=== PATIENT | female | born 1960 | race African-American/Black ===

== ENCOUNTER 2017-12-27 07:22 | Emergency (ER) | payer SELFPAY ==
[~2017-12-27] VITALS: Ht 167.6 cm; Wt 95.8 kg
[2017-12-27 07:28] VITALS: BP 245/120; PULSE 90; RESP 18; TEMP 98; O2SAT 98
[2017-12-27] MEDS ORDERED: cloNIDine HCL 0.2 MG TAB PO ONE (07:45)
[2017-12-27] MEDS ORDERED: HYDROmorphone HCL PF 2 MG/ML VIAL IV PUSH ONE (07:45)
[2017-12-27] MEDS ORDERED: ONDANSETRON HCL 4 MG/2 ML VIAL IV PUSH ONE (07:45)
--- NOTE | 2017-12-27 07:47 | PD ---
HPI Chief Complaint: Back/ Neck Pain or Injury Time Seen by Provider: 07:37 Travel History International Travel<30 days: No Contact w/Intl Traveler<30days: No Traveled to known affect area: No History of Present Illness HPI This 57-year-old female is complaining of back pain. She is having low back pain which is been going on for 2 weeks. Is aggravated by standing and moving. There is no numbness or tingling. She has had similar pain in the past. She has a history of hypertension and has been on 2 medications for blood pressure in the past. She moved here from [place] 10 months ago and has not taken any medicine since she moved. He has been taking some ibuprofen 800 mg for the pain without much response. She also has noticed some snapping in her right third finger PFSH Past Medical History Cardiovascular Problems: Yes (HTN) Hypertension: Yes Musculoskeletal: Yes (Back pain ) Tetanus Vaccination: > 5 Years Influenza Vaccination: No ?: Not Menopausal: Yes Social History Alcohol Use: No Tobacco Use: Yes (1/2 PPD) Substance Use: No Allergies-Medications (Allergen,Severity, Reaction): Coded Allergies: morphine (Verified Allergy, Intermediate, Nausea/Vomiting, 12/27/17) Reported Meds & Prescriptions Reported Meds & Active Scripts Active No Active Prescriptions or Reported Medications Review of Systems General / Constitutional: No: Fever, Chills Eyes: No: Diploplia, Blurred Vision HENT: No: Headaches Cardiovascular: No: Chest Pain or Discomfort, Palpitations Respiratory: No: Cough Gastrointestinal: No: Nausea, Vomiting Genitourinary: No: Urgency Skin: No Rash Neurologic: No: Weakness, Syncope Hematologic/Lymphatic: No: Easy Bruising Physical Exam Narrative GENERAL: Well-developed female SKIN: Focused skin assessment warm/dry. HEAD: Atraumatic. Normocephalic. EYES: Pupils equal and round. No scleral icterus. No injection or drainage. ENT: No nasal bleeding or discharge. Mucous membranes pink and moist. NECK: Trachea midline. No JVD. CARDIOVASCULAR: Regular rate and rhythm. No murmur appreciated. RESPIRATORY: No accessory muscle use. Clear to auscultation. Breath sounds equal bilaterally. GASTROINTESTINAL: Abdomen soft, non-tender, nondistended. Hepatic and splenic margins not palpable. MUSCULOSKELETAL: No obvious deformities. No clubbing. No cyanosis. No edema. There is some tenderness of the back in the midline NEUROLOGICAL: Awake and alert. No obvious cranial nerve deficits. Motor grossly within normal limits. Normal speech. Sensation and strength of the legs is equal PSYCHIATRIC: Appropriate mood and affect; insight and judgment normal. Data Data Last Documented VS Vital Signs Date Time Temp Pulse Resp B/P (MAP) Pulse Ox O2 Delivery O2 Flow Rate FiO2 12/27/17 08:30 83 16 150/85 (106) 94 Room Air 12/27/17 07:28 98.0 Orders Orders Complete Blood Count With Diff (12/27/17 07:42) Basic Metabolic Panel (Bmp) (12/27/17 07:42) Urinalysis - C+S If Indicated (12/27/17 07:42) Clonidine (Catapres) (12/27/17 07:45) Ondansetron Inj (Zofran Inj) (12/27/17 07:45) Hydromorphone Pf Inj (Dilaudid Pf Inj) (12/27/17 07:45) Urine Culture (12/27/17 08:00) Labs Laboratory Tests Test 12/27/17 07:50 12/27/17 08:00 White Blood Count 16.3 TH/MM3 Red Blood Count 4.89 MIL/MM3 Hemoglobin 13.1 GM/DL Hematocrit 40.7 % Mean Corpuscular Volume 83.1 FL Mean Corpuscular Hemoglobin 26.8 PG Mean Corpuscular Hemoglobin Concent 32.3 % Red Cell Distribution Width 13.9 % Platelet Count 413 TH/MM3 Mean Platelet Volume 9.3 FL Neutrophils (%) (Auto) 57.2 % Lymphocytes (%) (Auto) 34.3 % Monocytes (%) (Auto) 4.1 % Eosinophils (%) (Auto) 3.0 % Basophils (%) (Auto) 1.4 % Neutrophils # (Auto) 9.3 TH/MM3 Lymphocytes # (Auto) 5.6 TH/MM3 Monocytes # (Auto) 0.7 TH/MM3 Eosinophils # (Auto) 0.5 TH/MM3 Basophils # (Auto) 0.2 TH/MM3 CBC Comment AUTO DIFF Blood Urea Nitrogen 8 MG/DL Creatinine 0.69 MG/DL Random Glucose 105 MG/DL Calcium Level 8.8 MG/DL Sodium Level 140 MEQ/L Potassium Level 3.7 MEQ/L Chloride Level 107 MEQ/L Carbon Dioxide Level 28.3 MEQ/L Anion Gap 5 MEQ/L Estimat Glomerular Filtration Rate 87 ML/MIN Urine Collection Type CLEAN CATCH Urine Color YELLOW Urine Turbidity CLEAR Urine pH 5.5 Urine Specific [place] GREATER/EQUAL 1.030 Urine Protein NEG mg/dL Urine Glucose (UA) NEG mg/dL Urine Ketones NEG mg/dL Urine Occult Blood TRACE Urine Nitrite NEG Urine Bilirubin NEG Urine Urobilinogen 0.2 MG/DL Urine Leukocyte Esterase NEG Urine RBC 4-9 /hpf Urine WBC 9-14 /hpf Urine WBC Clumps OCC Urine Squamous Epithelial Cells > 8 /hpf Urine Bacteria FEW /hpf Urine Mucus FEW /lpf Microscopic Urinalysis Comment CULTURE INDICATED Urine Collection Time 08:00 [facility] Medical Decision Making Medical Screen Exam Complete: Yes Emergency Medical Condition: Yes Medical Record Reviewed: Yes Differential Diagnosis Differential includes hypertension, musculoskeletal back pain, electrolyte imbalance, renal insufficiency Narrative Course Patient was given pain medication and clonidine and had prompt improvement of her blood pressure. Her hemoglobin is 13 with a white count of 16,000. Urinalysis does show a urinary tract infection. She will be treated with Bactrim. I am going to start her on Norvasc and will prescribe some Lortab for her back pain Diagnosis Primary Impression: Hypertension Qualified Codes: I10 - Essential (primary) hypertension Additional Impressions: Back pain Urinary tract infection Scripts Amlodipine (Norvasc) 10 Mg Tab 10 MG PO DAILY for Blood Pressure Management, #30 TAB 0 Refills Prov: Zain Haynes MD 12/27/17 Hydrocodone-Acetaminophen ([place]) 7.5-325 mg Tab 1 TAB PO Q4H Y for PAIN, #12 TAB 0 Refills Prov: Zain Haynes MD 12/27/17 Sulfamethoxazole-Trimethoprim (Bactrim DS) 800-160 Mg Tab 1 TAB PO BID for Infection, #14 TAB 0 Refills Prov: Zain Haynes MD 12/27/17 Disposition: DISCHARGE HOME Condition: Stable Zain Haynes MD December 27, 2017 07:47
[2017-12-27 08:16] LABS: BILIRUBIN, URINE NEG (NEG); BLOOD, URINE TRACE (NEG); GLUCOSE,URINE NEG (NEG); KETONE, URINE NEG (NEG); NITRITE,URINE NEG (NEG); PH, URINE 5.5 (5.0-8.5); URINE COLOR YELLOW (YELLW/STRAW); URINE LEUKOCYTE ESTERASE NEG (NEG)
[2017-12-27 08:20] LABS: BACTERIA, URINE FEW /hpf; MUCUS URINE FEW /lpf (OCC); SQUAMOUS EPITHELIAL CELL URINE > 8 /hpf (0-5); WHITE BLOOD CELL CLUMPS OCC
[2017-12-27 08:20] LABS: AUTOMATED NEUTROPHIL # 9.3 TH/MM3 (1.8-7.7); BASOPHIL # 0.2 TH/MM3 (0-0.2); BASOPHIL % 1.4 % (0.0-2.0); EOSINOPHIL # 0.5 TH/MM3 (0-0.4); HEMATOCRIT 40.7 % (35.0-46.0); HEMOGLOBIN 13.1 GM/DL (11.6-15.3); LYMPH % 34.3 % (9.0-44.0); LYMPHOCYTE # 5.6 TH/MM3 (1.0-4.8); MEAN CELL VOLUME 83.1 FL (80.0-100.0); MEAN CORPUSCULAR HEMOGLOBIN 26.8 PG (27.0-34.0); MEAN CORPUSCULAR HGB CONC 32.3 % (32.0-36.0); MEAN PLATELET VOLUME 9.3 FL (7.0-11.0); MONO % 4.1 % (0.0-8.0); MONOCYTE # 0.7 TH/MM3 (0-0.9); NEUT % 57.2 % (16.0-70.0); PLATELET COUNT 413 TH/MM3 (150-450); RED BLOOD COUNT 4.89 MIL/MM3 (4.00-5.30); RED CELL DISTRIBUTION WIDTH 13.9 % (11.6-17.2); WHITE BLOOD COUNT 16.3 TH/MM3 (4.0-11.0)
[2017-12-27 08:26] LABS: CALCIUM 8.8 MG/DL (8.5-10.1)
[2017-12-27 08:27] LABS: BICARBONATE 28.3 MEQ/L (21.0-32.0)
[2017-12-27 08:30] VITALS: BP 150/85; PULSE 83; RESP 16; O2SAT 94
[2017-12-27 08:30] LABS: CREATININE 0.69 MG/DL (0.50-1.00)
[2017-12-27 08:35] VITALS: RESP 18
[2017-12-27] MEDS ORDERED: AMLO10 PO (08:44)
[2017-12-27] MEDS ORDERED: BACT800T5 PO (08:44)
[2017-12-27] MEDS ORDERED: HYDR-3288 PO (08:44)
== END 2017-12-27 10:00 | disposition home or self-care (01) ==
LOC: PHED 07:22
DX: I10 Essential (primary) hypertension (principal); M54.5 Low back pain; N39.0 Urinary tract infection, site not specified; F17.200 Nicotine dependence, unspecified, uncomplicated
CPT/HCPCS: 80048; 81001; 85025; 87086; 96374; 96375; 99284; J1170; J2405

== ENCOUNTER 2018-01-24 09:06 | Emergency (ER) | payer SELFPAY ==
[~2018-01-24 09:06] MED LIST: AMLO10 PO; BACT800T5 PO; HYDR-3288 PO
[2018-01-24 09:14] VITALS: BP 151/77; PULSE 82; RESP 20; TEMP 98.8; O2SAT 96
[2018-01-24] MEDS ORDERED: AMOX500C PO (09:32)
--- NOTE | 2018-01-24 09:32 | PD ---
HPI Chief Complaint: ENT Complaint Time Seen by Provider: 09:21 Travel History International Travel<30 days: No Contact w/Intl Traveler<30days: No Traveled to known affect area: No History of Present Illness HPI 57-year-old female presents to the emergency department with complaint of a sore throat since Saturday. Reports nasal congestion. Said she had 102.3 fever yesterday. Denies lump in throat, difficulty swallowing, unusual drooling. Reports painful swallowing. Denies cough, ear pain. Has been taking TheraFlu for symptom management. Rates pain 7/10. Worse with swallowing. No known relieving factors. Burning in sensation. 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 No primary care provider. Allergies to morphine. Has no other medical complaints. No other modifying factors or associated signs and symptoms. PFSH Past Medical History Cardiovascular Problems: Yes (HTN) Hypertension: Yes Musculoskeletal: Yes (Back pain ) Menopausal: Yes Social History Alcohol Use: No Tobacco Use: Yes (1/2 PPD) Substance Use: No Allergies-Medications (Allergen,Severity, Reaction): Coded Allergies: morphine (Verified Allergy, Intermediate, Nausea/Vomiting, 01/24/18) Reported Meds & Prescriptions Reported Meds & Active Scripts Active Amoxicillin 500 Mg Cap 500 Mg PO BID 10 Days Norvasc (Amlodipine Besylate) 10 Mg Tab 10 Mg PO DAILY [place] (Hydrocodone-Acetaminophen) 7.5-325 mg Tab 1 Tab PO Q4H PRN Review of Systems Except as stated in HPI: all other systems reviewed are Neg Physical Exam Narrative GENERAL: Well-nourished, well-developed patient, in no acute distress; afebrile , nontoxic-appearing SKIN: Warm and dry. No rash. HEAD: Atraumatic. Normocephalic. EYES: Pupils equal and round at 3 mm with brisk reaction. No scleral icterus. No injection or drainage. PERRLA. ENT: Mucosa pink and dry. Pharynx with 2+ tonsils; with erythema, exudate, and edema. No Uvular edema. No uvular, palatal, or tonsillar deviation. Airway patent. EARS: Bilateral pinnae and external canals appear within normal limits. Bilateral tympanic membranes without erythema, dullness or perforation.. NECK: Trachea midline. Anterior cervical lymphadenopathy and tenderness. CARDIOVASCULAR: Regular rate RESPIRATORY: No accessory muscle use. GASTROINTESTINAL: Rounded. MUSCULOSKELETAL: No obvious deformities. No clubbing. No cyanosis. No edema. NEUROLOGICAL: Awake and alert. Oriented 3. No obvious cranial nerve deficits. Motor grossly within normal limits. Normal speech. Moves all extremities. PSYCHIATRIC: Appropriate mood and affect; insight and judgment normal. Data Data Last Documented VS Vital Signs Date Time Temp Pulse Resp B/P (MAP) Pulse Ox O2 Delivery O2 Flow Rate FiO2 01/24/18 09:14 98.8 82 20 151/77 (101) 96 Orders Orders Ed Discharge Order (01/24/18 09:33) MDM Medical Decision Making Medical Screen Exam Complete: Yes Emergency Medical Condition: Yes Medical Record Reviewed: Yes Differential Diagnosis Strep pharyngitis, exudative pharyngitis, viral pharyngitis, less likely peritonsillar abscess Narrative Course 57-year-old female physical exam consistent with exudative pharyngitis. Patient is afebrile and nontoxic-appearing. She does report fever of 102.3 yesterday. Centor Score: 4: Score > or equalt to 4=risk of GABHS 51-53%=treat empirically with antibiotics. Amoxicillin prescribed for home. Work release provided. Instructed patient to follow up with primary care provider. Patient verbalizes understanding and agreement with treatment plan. Patient is medically cleared and stable for discharge. Discussed reasons to return to the emergency department. Patient agrees with treatment plan. The patients vital signs are stable and the patient is stable for outpatient follow-up and treatment. Patient discharged home, stable and in no acute distress. Diagnosis Primary Impression: Exudative pharyngitis Referrals: [facility] Primary Care Physician Patient Instructions: General Instructions, Pharyngitis (ED) Departure Forms: Tests/Procedures, Work Release Enter return to work date: Jan 27, 2018 Additional Instructions: Take Antibiotics as prescribed and complete full course of antibiotics Throw away and change your toothbrush 24 hours after starting antibiotics Get plenty of sleep/rest Rest your voice Drink plenty of fluids to prevent dehydration Use warm saltwater gargles to soothe throat pain Use an air humidifier/turn off ceiling fans Use throat lozenges as needed for sore throat Use ibuprofen or acetaminophen as needed to relieve pain and fever Follow-up with your primary care provider within 2-4 days Return immediately to the emergency department with worsening of symptoms Med/Other Pt SpecificInfo: Prescription(s) given Scripts Amoxicillin (Amoxicillin) 500 Mg Cap 500 MG PO BID for Infection for 10 Days, #20 CAP 0 Refills Prov: Stephanie Beck 01/24/18 Disposition: 01 DISCHARGE HOME Condition: Stable Stephanie Beck Jan 24, 2018 09:32
== END 2018-01-24 09:46 | disposition home or self-care (01) ==
LOC: PHEFT 09:06
DX: J02.9 Acute pharyngitis, unspecified (principal); R09.81 Nasal congestion; R50.9 Fever, unspecified; I10 Essential (primary) hypertension; F17.200 Nicotine dependence, unspecified, uncomplicated
CPT/HCPCS: 99283

== ENCOUNTER 2018-02-08 10:52 | Emergency (ER) | payer SELFPAY ==
[~2018-02-08] VITALS: Ht 167.6 cm; Wt 93.0 kg
[~2018-02-08 10:52] MED LIST changes: +AMOX500C PO; -BACT800T5 PO
[2018-02-08 11:02] VITALS: BP 188/83; PULSE 83; RESP 16; TEMP 98.2; O2SAT 99
[2018-02-08 11:25] VITALS: BP 176/90; PULSE 85; RESP 18; O2SAT 98
[2018-02-08] MEDS ORDERED: SODIUM CHLORIDE 0.9% FLUSH 10 ML FLUSH IV FLUSH PRN (11:30)
--- NOTE | 2018-02-08 11:35 | PD ---
HPI Chief Complaint: Pain: Acute or Chronic Time Seen by Provider: 11:26 Travel History International Travel<30 days: No Contact w/Intl Traveler<30days: No Traveled to known affect area: No History of Present Illness HPI Patient presents with complaints of right upper quadrant abdominal pain since 4: 00 yesterday. Denies any change in urination or bowel. Denies any blood per stool or urine. Denies any nausea or vomiting. Pain is 4 out of 10, dull and constant. Taking fluids without difficulty. Denies any fevers. No alleviating or aggravating factors. Denies any new chest pain shortness of breath. No history of colonoscopy. No family history of colon cancer. No previous abdominal surgeries. PFSH Past Medical History Cardiovascular Problems: Yes (HTN) Diminished Hearing: No Hypertension: Yes Musculoskeletal: Yes (Back pain ) Tetanus Vaccination: > 5 Years Influenza Vaccination: No ?: Not Menopausal: Yes Social History Alcohol Use: No Tobacco Use: Yes (1 PPD) Substance Use: No Allergies-Medications (Allergen,Severity, Reaction): Coded Allergies: morphine (Verified Allergy, Intermediate, Nausea/Vomiting, 02/08/18) Reported Meds & Prescriptions Reported Meds & Active Scripts Active Norvasc (Amlodipine Besylate) 10 Mg Tab 10 Mg PO DAILY Review of Systems General / Constitutional: No: Fever Eyes: No: Visual changes HENT: No: Headaches Cardiovascular: No: Chest Pain or Discomfort Respiratory: No: Shortness of Breath Gastrointestinal: Positive: Abdominal Pain Genitourinary: No: Dysuria Musculoskeletal: No: Pain Skin: No Rash Neurologic: No: Weakness Psychiatric: No: Depression Endocrine: No: Polydipsia Hematologic/Lymphatic: No: Easy Bruising Physical Exam Narrative GENERAL: Well-nourished, well-developed patient. SKIN: Focused skin assessment warm/dry. HEAD: Normocephalic. EYES: No scleral icterus. No injection or drainage. NECK: Supple, trachea midline. No JVD or lymphadenopathy. CARDIOVASCULAR: Regular rate and rhythm without murmurs, gallops, or rubs. RESPIRATORY: Breath sounds equal bilaterally. No accessory muscle use. GASTROINTESTINAL: Abdomen soft, nondistended, no hepatomegaly, diffusely tender right upper quadrant and right lower quadrant, positive bowel sounds MUSCULOSKELETAL: No cyanosis, or edema. BACK: Nontender without obvious deformity. No CVA tenderness. Data Data Last Documented VS Vital Signs Date Time Temp Pulse Resp B/P (MAP) Pulse Ox O2 Delivery O2 Flow Rate FiO2 02/08/18 13:27 68 18 158/91 (113) 95 Room Air 02/08/18 11:02 98.2 Orders Orders Complete Blood Count With Diff (02/08/18 11:26) Comprehensive Metabolic Panel (02/08/18 11:26) Lipase (02/08/18 11:26) Lactic Acid (02/08/18 11:26) Urinalysis - C+S If Indicated (02/08/18 11:26) Iv Access Insert/Monitor (02/08/18 11:26) Ecg Monitoring (02/08/18 11:26) Oximetry (02/08/18 11:26) Sodium Chloride 0.9% Flush (Ns Flush) (02/08/18 11:30) Ct Abd/Pel W Iv Contrast(Rout) (02/08/18 11:26) Iohexol 350 Inj (Omnipaque 350 Inj) (02/08/18 12:21) Urine Culture (02/08/18 12:05) Clonidine (Catapres) (02/08/18 12:45) Ketorolac Inj (Toradol Inj) (02/08/18 13:00) Labs Laboratory Tests Test 02/08/18 12:05 White Blood Count 13.7 TH/MM3 Red Blood Count 4.22 MIL/MM3 Hemoglobin 11.9 GM/DL Hematocrit 36.0 % Mean Corpuscular Volume 85.3 FL Mean Corpuscular Hemoglobin 28.3 PG Mean Corpuscular Hemoglobin Concent 33.1 % Red Cell Distribution Width 14.2 % Platelet Count 565 TH/MM3 Mean Platelet Volume 8.3 FL Neutrophils (%) (Auto) 57.1 % Lymphocytes (%) (Auto) 35.0 % Monocytes (%) (Auto) 5.2 % Eosinophils (%) (Auto) 2.2 % Basophils (%) (Auto) 0.5 % Neutrophils # (Auto) 7.8 TH/MM3 Lymphocytes # (Auto) 4.8 TH/MM3 Monocytes # (Auto) 0.7 TH/MM3 Eosinophils # (Auto) 0.3 TH/MM3 Basophils # (Auto) 0.1 TH/MM3 CBC Comment DIFF FINAL Differential Comment Urine Collection Type CLEAN CATCH Urine Color YELLOW Urine Turbidity SL CLOUDY Urine pH 6.0 Urine Specific [place] 1.025 Urine Protein NEG mg/dL Urine Glucose (UA) NEG mg/dL Urine Ketones NEG mg/dL Urine Occult Blood SMALL Urine Nitrite NEG Urine Bilirubin NEG Urine Urobilinogen 0.2 MG/DL Urine Leukocyte Esterase SMALL Urine RBC 4-9 /hpf Urine WBC 20-24 /hpf Urine WBC Clumps MOD Urine Squamous Epithelial Cells > 8 /hpf Urine Amorphous Sediment MOD Urine Bacteria MANY /hpf Urine Trichomonas MOD Microscopic Urinalysis Comment CULTURE INDICATED Urine Collection Time 1119 Blood Urea Nitrogen 6 MG/DL Creatinine 0.66 MG/DL Random Glucose 85 MG/DL Total Protein 7.8 GM/DL Albumin 3.1 GM/DL Calcium Level 9.0 MG/DL Alkaline Phosphatase 76 U/L Aspartate Amino Transf (AST/SGOT) 10 U/L Alanine Aminotransferase (ALT/SGPT) 12 U/L Total Bilirubin 0.3 MG/DL Sodium Level 142 MEQ/L Potassium Level 4.0 MEQ/L Chloride Level 106 MEQ/L Carbon Dioxide Level 29.5 MEQ/L Anion Gap 7 MEQ/L Estimat Glomerular Filtration Rate 111 ML/MIN Lactic Acid Level 0.7 mmol/L Lipase 71 U/L [facility] Medical Decision Making Medical Screen Exam Complete: Yes Emergency Medical Condition: Yes Differential Diagnosis Gallstones, appendicitis, colitis, ischemic bowel, cholecystitis Narrative Course Plan discussed with patient at bedside. Labs reviewed and within normal limits. Urinalysis reveals UTI. Blood pressure improved with clonidine. Last 72 hours Impressions Abdomen/Pelvis CT 02/08/18 1126 Signed Impressions: CONCLUSION: 1. Numerous small low-density lesions in the liver, nonspecific. 2. No acute inflammatory process. 3. Normal appendix. Diagnosis Primary Impression: Abdominal pain Qualified Codes: R10.31 - Right lower quadrant pain Additional Impressions: UTI (urinary tract infection) Qualified Codes: N39.0 - Urinary tract infection, site not specified; R31.9 - Hematuria, unspecified Hypertension Qualified Codes: I10 - Essential (primary) hypertension Additional Instructions: Encouraged to follow-up with PCP, encourage fluids and a cranberry supplement, antibiotic as prescribed, return to emergency room with any onset of new symptoms Med/Other Pt SpecificInfo: Prescription(s) given Scripts Sulfamethoxazole-Trimethoprim (Bactrim DS) 800-160 Mg Tab 1 TAB PO BID for Infection, #10 TAB 0 Refills Prov: Gonzalo Avila MD 02/08/18 Disposition: 01 DISCHARGE HOME Condition: Good Gonzalo Avila MD Feb 08, 2018 11:35
[2018-02-08 12:12] VITALS: O2SAT 98
[2018-02-08 12:19] LABS: AUTOMATED NEUTROPHIL # 7.8 TH/MM3 (1.8-7.7); BASOPHIL # 0.1 TH/MM3 (0-0.2); BASOPHIL % 0.5 % (0.0-2.0); EOSINOPHIL # 0.3 TH/MM3 (0-0.4); EOSINOPHIL % 2.2 % (0.0-4.0); HEMOGLOBIN 11.9 GM/DL (11.6-15.3); LYMPHOCYTE # 4.8 TH/MM3 (1.0-4.8); MEAN CELL VOLUME 85.3 FL (80.0-100.0); MEAN CORPUSCULAR HEMOGLOBIN 28.3 PG (27.0-34.0); MEAN CORPUSCULAR HGB CONC 33.1 % (32.0-36.0); MEAN PLATELET VOLUME 8.3 FL (7.0-11.0); MONO % 5.2 % (0.0-8.0); MONOCYTE # 0.7 TH/MM3 (0-0.9); NEUT % 57.1 % (16.0-70.0); PLATELET COUNT 565 TH/MM3 (150-450); RED BLOOD COUNT 4.22 MIL/MM3 (4.00-5.30); RED CELL DISTRIBUTION WIDTH 14.2 % (11.6-17.2); WHITE BLOOD COUNT 13.7 TH/MM3 (4.0-11.0)
[2018-02-08 12:21] LABS: BILIRUBIN, URINE NEG (NEG); BLOOD, URINE SMALL (NEG); GLUCOSE,URINE NEG (NEG); KETONE, URINE NEG (NEG); NITRITE,URINE NEG (NEG); URINE COLOR YELLOW (YELLW/STRAW); URINE LEUKOCYTE ESTERASE SMALL (NEG)
[2018-02-08] MEDS ORDERED: IOHEXOL 350 MG/ML 10 ML VIAL (for RAD DIAG) IVCONTRAST ONE (12:21)
[2018-02-08 12:26] LABS: CHLORIDE 106 MEQ/L (98-107); SODIUM (NA) 142 MEQ/L (136-145)
[2018-02-08 12:30] LABS: ALBUMIN 3.1 GM/DL (3.4-5.0); BACTERIA, URINE MANY /hpf; BICARBONATE 29.5 MEQ/L (21.0-32.0); SQUAMOUS EPITHELIAL CELL URINE > 8 /hpf (0-5)
[2018-02-08 12:31] LABS: AMORPHOUS SEDIMENT, URINE MOD; BLOOD UREA NITROGEN 6 MG/DL (7-18); GLUCOSE,RANDOM 85 MG/DL (74-106)
[2018-02-08 12:32] LABS: TRICHOMONAS, URINE MOD; WHITE BLOOD CELL CLUMPS MOD
[2018-02-08 12:33] LABS: ALT (GPT) 12 U/L (10-53)
[2018-02-08 12:34] LABS: AST (GOT) 10 U/L (15-37); CREATININE 0.66 MG/DL (0.50-1.00); GLOMERULAR FILTRATION RATE 111 ML/MIN (>89)
[2018-02-08 12:35] LABS: TOTAL BILIRUBIN ADULT 0.3 MG/DL (0.2-1.0); TOTAL PROTEIN 7.8 GM/DL (6.4-8.2)
[2018-02-08 12:36] LABS: ALKALINE PHOSPHATASE 76 U/L (45-117)
--- NOTE | 2018-02-08 12:37 | RADRPT ---
EXAM DATE: 02/08/2018 12:25 PM EDT AGE/SEX: 57 years / Female INDICATIONS: Right sided abdominal pain. CLINICAL DATA: This is the patient's initial encounter. Patient reports that signs and symptoms have been present for 2 days and indicates a pain score of 10/10. MEDICAL/SURGICAL HISTORY: Hypertension. . Neck surgery. ORAL CONTRAST: No oral contrast ingested. RADIATION DOSE: 21.06 CTDI (mGy) COMPARISON: No prior exams available for comparison. TECHNIQUE: Multiple contiguous axial images were obtained through the abdomen and pelvis following b olus infusion of 95 ml Omnipaque 350 (iohexol) nonionic water-soluble contrast as a single exam dos e. No oral contrast ingested. Using automated exposure control and adjustment of the mA and/or kV ac cording to patient size, radiation dose was kept as low as reasonably achievable to obtain optimal di agnostic quality images. DICOM format image data is available electronically for review and comparis on. FINDINGS: Lower Lungs: The visualized lower lungs are clear. Liver: The liver has a homogeneous density with multiple small low-density lesions. There is no dilat ion of the biliary tree. Spleen: Homogeneous density without enlargement. Pancreas: Unremarkable without mass or calcification. Kidneys: Normal in size and shape. No evidence of mass or hydronephrosis. Adrenal Glands: Unremarkable. Aorta: The aorta and proximal iliac vessels are grossly unremarkable without aneurysmal dilation. Bowel/Mesentery: The bowel loops are grossly unremarkable. The cecum and sigmoid colon have a normal configuration. Abdominal Wall: Intact. Retroperitoneum: Small scattered retroperitoneal lymph nodes Bladder: Contours are smooth. Reproductive Organs: No abnormal masses or calcifications seen. Inguinal: The inguinal region is unremarkable without evidence of adenopathy. Bony Structures: Degenerative changes lumbosacral junction. CONCLUSION: 1. Numerous small low-density lesions in the liver, nonspecific. 2. No acute inflammatory process. 3. Normal appendix. Electronically signed by: Ramesh Sullivan MD 02/08/2018 12:35 PM EDT
[2018-02-08 12:45] VITALS: BP 177/93; PULSE 76; RESP 18; O2SAT 96
[2018-02-08] MEDS ORDERED: cloNIDine HCL 0.1 MG TAB PO ONE (12:45)
[2018-02-08] MEDS ORDERED: KETOROLAC TROMETHAMINE 30 MG/ML (IVP) VIAL IV PUSH ONE (13:00)
[2018-02-08 13:26] VITALS: BP 177/88; PULSE 72; RESP 18; O2SAT 95
[2018-02-08 13:27] VITALS: BP 158/91; PULSE 68; RESP 18; O2SAT 95
[2018-02-08] MEDS ORDERED: BACT800T5 PO (13:36)
== END 2018-02-08 14:07 | disposition home or self-care (01) ==
LOC: PHED 10:52
DX: R10.31 Right lower quadrant pain (principal); N39.0 Urinary tract infection, site not specified; I10 Essential (primary) hypertension; R31.9 Hematuria, unspecified; B96.1 Klebsiella pneumoniae [K. pneumoniae] as the cause of diseases classified elsewhere; Z72.0 Tobacco use; Z88.5 Allergy status to narcotic agent
CPT/HCPCS: 74177; 80053; 81001; 83605; 83690; 85025; 87077; 87086; 87186; 96374; 99284; J1885; Q9967